=== PATIENT | female | born 1975 | race Caucasian/White ===

== ENCOUNTER → 2020-09-10 10:21 | Outpatient (CLI) | payer BC, SELFPAY ==
--- NOTE | ~2020-09-10 | MM_ITS ---
EXAMINATION: MM screening ester BI w courtney HISTORY: Screening mammogram TECHNIQUE: Craniocaudal and mediolateral oblique 3-D tomosynthesis images were obtained and synthetic 2-D images were generated. CAD analysis was submitted and interpreted. COMPARISON: 08/01/2019, 07/12/2018, 07/20/2017, 07/06/2017, 06/23/2016 BREAST PARENCHYMAL COMPOSITION: There are scattered areas of fibroglandular density. FINDINGS: Scattered benign-appearing calcifications are present. There is no evidence of suspicious m ass, calcification, or architectural distortion to suggest malignancy in either breast. There has bee n no suspicious interval change. IMPRESSION: 1. No mammographic evidence of malignancy. 2. Recommend routine screening mammography in one year. BI-RADS Category 2: Benign finding(s). Reviewed, dictated and finalized at location A. T ORGANIZER
== END ==
PROVIDERS: Visit Provider Obstetrics & Gynecology
DX: Z12.31 Encounter for screening mammogram for malignant neoplasm of breast (principal)
CPT/HCPCS: 77063; 77067

== ENCOUNTER 2020-11-19 10:49 | Emergency (ER) | payer BC, SELFPAY ==
[2020-11-19 11:14] VITALS: BP 152/89; PULSE 72; RESP 17; TEMP 36.8; O2SAT 100
--- NOTE | 2020-11-19 12:14 | ED.SKABFB ---
HPI - Skin/Abscess/Foreign Bdy General Chief complaint: Skin/Abscess/Foreign Body Stated complaint: lg sore on bottom lip Time Seen by Provider: 11/19/20 12:14 Source: patient Mode of arrival: ambulatory Limitations: no limitations History of Present Illness HPI narrative: 45 years old white female presents with pain and swelling left side of lower lip started 6 days ago, started on Bactrim 2 days ago, is getting worse. Patient is able to squeeze pus out of it. Patient denies any fever, chills, nausea, vomiting, headache. Patient reported above symptoms started as a small pimple and gradually got worse. Related Data Allergies Allergy/AdvReac Type Severity Reaction Status Date / Time No Known Allergies Allergy Unverified 11/06/20 08:11 Review of Systems Review of Systems: Narrative: CONSTITUTIONAL: Denies fever, chills, or sweats. EYES: Denies visual changes, redness, or discharge. ENT: Denies rhinorrhea, congestion, sore throat, or otalgia. CARDIOVASCULAR: Denies chest pain, palpitations, or edema. RESPIRATORY: Denies cough or dyspnea. GASTROINTESTINAL: Denies abdominal pain, nausea, vomiting, or diarrhea. GENITOURINARY: Denies dysuria or hematuria. SKIN: Denies rash or itching. MUSCULOSKELETAL: Denies back pain, joint pain, or myalgia. NEUROLOGIC: Denies headache, numbness, or weakness. PSYCHIATRIC: Denies anxiety or depression. 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, BRAKE REPAIRER AIR is normal as tested, no gross motor deficit Course Course Emergency Course: Stable Vital Signs Vital signs: Vital Signs Temperature 36.8 C 11/19/20 11:14 Pulse Rate 72 11/19/20 11:14 Respiratory Rate 17 11/19/20 11:14 Blood Pressure 152/89 H 11/19/20 11:14 Pulse Oximetry 100 01/22/21 11:14 Temperature 36.8 C 11/19/20 11:14 Pulse Rate 70 11/19/20 13:00 Respiratory Rate 18 11/19/20 13:00 Blood Pressure 140/79 11/19/20 13:00 Pulse Oximetry 100 11/19/20 13:00 MDM - Skin/Abscess/Foreign Bdy MDM Narrative Medical decision making narrative: Patient presents with lower lip abscess, incision and drainage is my concern. Dr. Michaels consulted, further evaluation to follow Differential Diagnosis Differential diagnosis: Likely other (Abscess) Critical Care Time Critical Care Time Critical Care Time: Yes Total Critical Care Time: 20 Discharge Plan Discharge Clinical Impression: Abscess of skin or subcutaneous tissue Qualifiers: Site of cutaneous abscess: other site Qualified Code(s): L02.818 - Cutaneous abscess of other sites Patient Disposition: Home, Self-Care Condition: Improved Instructions: Abscess Incision and Drainage (DC) Additional Instructions: Follow-up with Dr. Michaels as scheduled. Return if symptoms are worsening , , take Tylenol, ibuprofen as as needed for aches and pain, continue home medications. Follow-up/Referrals: Kristina,Dimas Ramey MD [Primary Care Provider] -
[2020-11-19 13:00] VITALS: BP 140/79; PULSE 70; RESP 18; O2SAT 100
--- NOTE | 2020-11-19 18:39 | PM.PROC ---
Procedure Note - Detailed Date of procedure: 11/19/20 Pre-op diagnosis: lg sore on bottom lip Post-op diagnosis: other (Phlegmonous abscess of left lower lip.) Procedure performed: I evaluated this patient in the emergency room at the request of the ER physician. She had a 3 or 4-day-old swelling of the left lower lip. This is quite prominent. It had spontaneously drained to some degree through the vermilion of her left lower lip. She also felt a fluctuance near the labial sulcus. There was also a small area of drainage from the lower lip just below the vermilion. She had been started on Bactrim a day or so before. She could not determine that this had made a great deal a difference. This patient is generally healthy she not had a similar experience before. She was very uncomfortable and consented to have me drain this in the emergency room suite. The lip was easily blocked with the mental nerve block with 1% lidocaine with epinephrine. She tolerated that quite well. The entire lower lip was numbed. A small transverse incision was made just below the vermilion and this drained pus from what appeared to be the largest cavity which lay within the core the lip. I also made a 5 mm incision in the labial sulcus to drain the fluctuance that was developing there. Incisions were made with the awareness of the position of the mental nerve. The phlegmon tissue was debrided from the draining momo site. Gauze was passed from the lower cutaneous lip into this mass and debrided by that technique. This area was washed with wet gauze and an Iodoform wick was passed through the external cutaneous wound and through the vermilion opening and the ends attached loosely around the lip. The patient was turned back over to the emergency room physician who discharged her. She is to return to my office at the of next week for evaluation. She is permitted to shower. She is to remove the wick tomorrow evening. Surgeon: Luis Alberto Michaels MD
== END 2020-11-19 14:57 | disposition home or self-care (01) ==
PROVIDERS: Emergency Provider Emergency Medicine; PCP Internal Medicine
DX: K13.0 Diseases of lips (principal)
CPT/HCPCS: 40800; 99283

== ENCOUNTER → 2021-09-16 07:19 | Outpatient (CLI) | payer BC, SELFPAY ==
--- NOTE | ~2021-09-16 | MM_ITS ---
EXAMINATION: MM screening ester BI w courtney HISTORY: Screening mammogram TECHNIQUE: Craniocaudal and mediolateral oblique 3-D tomosynthesis images were obtained and synthetic 2-D images were generated. CAD analysis was submitted and interpreted. COMPARISON: 09/10/2020, 08/01/2019, 07/12/2018 BREAST PARENCHYMAL COMPOSITION: There are scattered areas of fibroglandular density. FINDINGS: Scattered benign-appearing calcifications are present. There is no evidence of suspicious m ass, calcification, or architectural distortion to suggest malignancy in either breast. There has bee n no suspicious interval change. IMPRESSION: 1. No mammographic evidence of malignancy. 2. Recommend routine screening mammography in one year. BI-RADS Category 2: Benign finding(s). Reviewed, dictated and finalized at location A. S SKINNER
== END ==
PROVIDERS: PCP Nurse Practitioner Family; Visit Provider Nurse Practitioner
DX: Z12.31 Encounter for screening mammogram for malignant neoplasm of breast (principal)
CPT/HCPCS: 77063; 77067

== ENCOUNTER → 2022-10-13 07:23 | Outpatient (CLI) | payer OTHER, SELFPAY ==
--- NOTE | ~2022-10-13 | MM_ITS ---
EXAMINATION: MM screening ester BI w courtney HISTORY: Screening TECHNIQUE: Craniocaudal and mediolateral oblique 3-D tomosynthesis images were obtained and synthetic 2-D images were generated. CAD analysis was submitted and interpreted. COMPARISON: Comparison to multiple prior studies sequentially, with oldest reviewed study dated 05/2017. BREAST PARENCHYMAL COMPOSITION: There are scattered areas of fibroglandular density. FINDINGS: There is no evidence of suspicious mass, calcification, or architectural distortion to sugg est malignancy in either breast. There has been no suspicious interval change. IMPRESSION: 1. No mammographic evidence of malignancy. 2. Recommend routine screening mammography in one year. BI-RADS Category 1: Negative Reviewed, dictated and finalized at location B. OLATE PRODUCTION MACHINE OPERATOR
== END ==
PROVIDERS: PCP Nurse Practitioner Family; Visit Provider Obstetrics & Gynecology Gynecology
DX: Z12.31 Encounter for screening mammogram for malignant neoplasm of breast (principal)
CPT/HCPCS: 77063; 77067

== ENCOUNTER → 2023-12-28 11:52 | Outpatient (CLI) | payer OTHER, SELFPAY ==
--- NOTE | ~2023-12-28 | MM_ITS ---
EXAMINATION: MM screening ester BI w courtney HISTORY: Screening TECHNIQUE: Craniocaudal and mediolateral oblique 3-D tomosynthesis images were obtained and synthetic 2-D images were generated. CAD analysis was submitted and interpreted. COMPARISON: Comparison to multiple prior studies sequentially, with oldest reviewed study dated 07/12. BREAST PARENCHYMAL COMPOSITION: Not dense: There are scattered areas of fibroglandular density. FINDINGS: The left breast is stable without evidence for malignancy. There is developing asymmetry me dially in the right breast on CC view. IMPRESSION: 1. Developing asymmetry medial aspect of the right breast on CC view. 2. Additional spot compression and mediolateral views with possible follow-up breast ultrasound recom mended. BI-RADS CATEGORY 0 - INCOMPLETE STUDY, NEED ADDITIONAL IMAGING EVALUATION. Reviewed, dictated and finalized at location A. NED SYRUP OPERATOR IMPRESSION: 1. Developing asymmetry medial aspect of the right breast on CC view. 2. Additional spot compression and mediolateral views with possible follow-up b reast ultrasound recommended. BI-RADS CATEGORY 0 - INCOMPLETE STUDY, NEED ADDITIONAL IMAGING EVALUATION.
== END ==
PROVIDERS: PCP Nurse Practitioner; Visit Provider Nurse Practitioner
DX: Z12.31 Encounter for screening mammogram for malignant neoplasm of breast (principal); R92.8 Other abnormal and inconclusive findings on diagnostic imaging of breast
CPT/HCPCS: 77063; 77067

== ENCOUNTER 2025-01-02 07:14 | Outpatient (CLI) | payer OTHER, SELFPAY ==
--- NOTE | ~2025-01-02 | MM_ITS ---
EXAMINATION: MM screening ester BI w courtney HISTORY: Screening TECHNIQUE: Craniocaudal and mediolateral oblique 3-D tomosynthesis images were obtained and synthetic 2-D images were generated. CAD analysis was submitted and interpreted. COMPARISON: 12/28/2023 and dating back to 09/10/2020 BREAST PARENCHYMAL COMPOSITION: The breasts are extremely dense, which lowers the sensitivity of mamm ography. FINDINGS: Interval increase in size of an asymmetry within the upper outer quadrant of the left breast approxim ately 8 to 9 cm from the nipple for which spot compression followed by a focused ultrasound is recomm ended. Otherwise stable parenchymal pattern without suspicious microcalcifications, architectural distortion or discrete masses. IMPRESSION: Interval increase in size of an asymmetry within the upper outer quadrant of the left breast approxim ately 8 to 9 cm from the nipple for which spot compression followed by a focused ultrasound is recomm ended. BI-RADS Category 0: Incomplete: Needs additional imaging evaluation. Reviewed, dictated and finalized at location A. AINABILITY SPECIALIST IMPRESSION: Interval increase in size of an asymmetry within the upper outer quadrant of th e left breast approximately 8 to 9 cm from the nipple for which spot compressio n followed by a focused ultrasound is recommended. BI-RADS Category 0: Incomplete: Needs additional imaging evaluation.
== END 2025-01-02 07:15 | disposition home or self-care (01) ==
LOC: MICIMG 07:15
PROVIDERS: PCP Nurse Practitioner Family; Visit Provider Nurse Practitioner
DX: Z12.31 Encounter for screening mammogram for malignant neoplasm of breast (principal); R92.8 Other abnormal and inconclusive findings on diagnostic imaging of breast
CPT/HCPCS: 77063; 77067

== ENCOUNTER 2025-02-13 07:50 | Outpatient (CLI) | payer OTHER, SELFPAY ==
--- NOTE | ~2025-02-13 | MMUS_ITS ---
EXAMINATION: US breast LT limited, MM diagnostic ester LT w courtney HISTORY: Follow-up left breast asymmetry TECHNIQUE: Additional 3-D tomosynthesis images of the left breast were performed and synthetic 2-D im ages were generated. CAD analysis was submitted and interpreted. High resolution Limited left breast ultrasound was performed. COMPARISON: Comparison to multiple prior studies sequentially, with oldest reviewed study dated 01/2019. BREAST PARENCHYMAL COMPOSITION: Not dense: There are scattered areas of fibroglandular density. FINDINGS: MAMMOGRAPHIC FINDINGS: There is a small mass in the upper outer quadrant of the left breast, middle third containing interna l punctate calcifications. There are stable left breast calcifications which are benign appearing. No suspicious architectural distortion. ULTRASOUND: Limited left breast ultrasound: At 3:00, 8 cm from the nipple there is a 6 mm cyst which corresponds to the mammographic finding. In the subareolar location of the left breast there is a 3 mm cyst. No s uspicious masses to suggest malignancy. IMPRESSION: 1. No evidence for malignancy in the left breast. Benign findings. 2. Routine yearly screening mammogram and regular clinical breast examination are recommended. BI-RADS Category 2: Benign finding(s). Reviewed, dictated and finalized at location B. IMPRESSION: 1. No evidence for malignancy in the left breast. Benign findings. 2. Routine yearly screening mammogram and regular clinical breast examination a re recommended. BI-RADS Category 2: Benign finding(s).
== END 2025-02-13 07:51 | disposition home or self-care (01) ==
LOC: MICIMG 07:50
PROVIDERS: PCP Nurse Practitioner Family; Visit Provider Nurse Practitioner
DX: R92.8 Other abnormal and inconclusive findings on diagnostic imaging of breast (principal)
CPT/HCPCS: 76642; 77061; 77065; G0279